=== PATIENT | male | born 1955 | race Caucasian/White ===

== ENCOUNTER → 2016-09-14 | Outpatient (CLI) | payer BC ==
[2016-09-14 09:33] LABS: ALANINE AMINOTRANSFERASE 26 U/L (0-55); ALBUMIN 4.1 G/DL (3.2-4.5); ANION GAP 6 MMOL/L (5-14); ASPARTATE AMINO TRANSFERASE 24 U/L (5-34); BILIRUBIN,DIRECT 0.3 MG/DL (0.0-0.3); BILIRUBIN,INDIRECT 0.6 MG/DL; BILIRUBIN,TOTAL 0.9 MG/DL (0.1-1.0); BLOOD UREA NITROGEN 10 MG/DL (7-18); BUN/CREATININE RATIO 9; CARBON DIOXIDE 26 MMOL/L (21-32); CHLORIDE 109 MMOL/L (98-107); CHOLESTEROL 137 MG/DL (< 200); CREATININE SERUM 1.16 MG/DL (0.60-1.30); DIRECT LDL 74 MG/DL (1-129); GFR ESTIMATED > 60; GLUCOSE 109 MG/DL (70-105); POTASSIUM 4.2 MMOL/L (3.6-5.0); SODIUM 141 MMOL/L (135-145); TOTAL PROTEIN 6.4 G/DL (6.4-8.2); TRIGLYCERIDES 81 MG/DL (<150); VLDL CHOLESTEROL 16 MG/DL (5-40)
== END ==
LOC: LAB 08:54
PROVIDERS: ATTEND Internal Medicine Cardiovascular Disease
DX: I25.10 Atherosclerotic heart disease of native coronary artery without angina pectoris (principal); I10 Essential (primary) hypertension; E78.5 Hyperlipidemia, unspecified; I51.7 Cardiomegaly
CPT/HCPCS: 36415; 80053; 80061; 80076; 82248

== ENCOUNTER → 2017-10-04 | Outpatient (CLI) | payer BC ==
--- NOTE | 2017-10-04 13:24 | Diagnostic Imaging Report ---
PROCEDURE: CT abdomen and pelvis without contrast. TECHNIQUE: Multiple contiguous axial images were obtained through the abdomen and pelvis without the use of intravenous contrast. INDICATION: Intermittent hematuria for one week. COMPARISON: No prior studies are available for comparison. FINDINGS: The lung bases are clear. No discrete liver mass is identified. Gallbladder appears to be contracted. The pancreas and spleen are unremarkable. No adrenal mass is detected. There is a 3 mm calcific density in mid left kidney, suggestive of a nonobstructing calculus. There appear to be renal sinus cysts bilaterally. No hydronephrosis is identified. The aorta is heavily calcified but nonaneurysmal. The small and large bowel loops are normal in caliber. The bladder is decompressed. No bladder calculi are seen. Prostate gland is unremarkable. There is no ascites. Bony structures are nonacute. IMPRESSION: 1. Tiny nonobstructing left renal calculus and bilateral renal sinus cysts. No other significant abnormality is seen. No acute feature is identified. Dictated by: Dictated on workstation # [id number]
== END ==
LOC: RAD 12:51
PROVIDERS: ATTEND Urology
DX: N28.1 Cyst of kidney, acquired (principal)
CPT/HCPCS: 74176

== ENCOUNTER → 2017-11-04 | Outpatient (CLI) | payer BC ==
[~2017-11-04] VITALS: Ht 177.8 cm; Wt 81.6 kg
[~2017-11-04] MED LIST: ASPI-586 PO; CARV6.252 PO; CATHETER FLUSH 10 ML SYR IV PRN; CLOP75TA28 PO; LISI-556 PO; NIAC10002 PO; OMG1KC PO; REGADENOSON 0.4 MG/5 ML SYR (LEXISCAN) IV ONE; ROSU20TA30 PO
[2017-11-04 09:10] VITALS: BP 119/75
[2017-11-04 09:14] VITALS: BP 84/54
[2017-11-04 09:15] VITALS: BP 112/70
[2017-11-04 09:54] LABS: ALANINE AMINOTRANSFERASE 26 U/L (0-55); ALBUMIN 4.2 GM/DL (3.2-4.5); ALKALINE PHOSPHATASE 62 U/L (40-136); BILIRUBIN,TOTAL 0.9 MG/DL (0.1-1.0); BUN/CREATININE RATIO 14; CALCIUM 9.3 MG/DL (8.5-10.1); CARBON DIOXIDE 26 MMOL/L (21-32); CHLORIDE 107 MMOL/L (98-107); CHOLESTEROL 127 MG/DL (< 200); CREATININE SERUM 0.95 MG/DL (0.60-1.30); GFR ESTIMATED > 60; GLUCOSE 107 MG/DL (70-105); HDL CHOLESTEROL 49 MG/DL (40-60); POTASSIUM 4.7 MMOL/L (3.6-5.0); SODIUM 139 MMOL/L (135-145); TOTAL PROTEIN 6.6 GM/DL (6.4-8.2); TRIGLYCERIDES 65 MG/DL (<150); VLDL CHOLESTEROL 13 MG/DL (5-40)
--- NOTE | 2017-11-04 16:06 | STRESS TEST ---
DATE OF SERVICE: 11/04/2017 LEXISCAN MYOVIEW STRESS TEST REPORT REFERRING PHYSICIAN: . Baseline heart rate is 59, baseline blood pressure 119/75. Baseline EKG is sinus rhythm with no ischemic changes. In summary, the patient received 10.61 mCi of technetium-99 Myoview and the resting images were obtained. Then, the patient received 0.4 mg of Lexiscan followed by 30.0 mCi of technetium-99 Myoview. Throughout the test, there were no EKG changes. The resting and stress images were reviewed and compared in the short axis, horizontal long axis, and vertical long axis views. Review of the images showed diaphragmatic attenuation with decreased uptake at the mid to apical inferior wall, inferolateral wall with mild reversibility. SSS is 8, SDS 4, TID value 0.98. On the gated images, the left ventricle appeared to be in normal size with normal contractility. Calculated ejection fraction 51%. CONCLUSION: 1. The patient tolerated Lexiscan well. 2. Diaphragmatic attenuation with questionable mild ischemia at the mid to apical inferior wall and inferolateral wall. 3. Normal left ventricular size with normal contractility. Calculated ejection fraction 51%. Job ID: [id number] DocumentID: [id number] Dictated Date: 11/04/2017 11:29:57 Development Engineer Date: 11/04/2017 16:05:50 Dictated By: ALEXANDRIA RUEDA MD
== END ==
LOC: CARD 07:28
PROVIDERS: ATTEND Internal Medicine Cardiovascular Disease
DX: I25.10 Atherosclerotic heart disease of native coronary artery without angina pectoris (principal); I51.9 Heart disease, unspecified; E78.5 Hyperlipidemia, unspecified
CPT/HCPCS: 36415; 78452; 80053; 80061; 93017

== ENCOUNTER 2017-11-13 06:54 | Day surgery (SDC) | payer BC ==
[2017-11-13] VITALS (12 sets, daily range): BP systolic 107–141; BP diastolic 68–83
[~2017-11-13] VITALS: Ht 177.8 cm; Wt 81.6 kg
[2017-11-13] MEDS ORDERED: NS IV 1000 ML 3,000 ML ONE (06:56)
[2017-11-13] MEDS ORDERED: LIDOCAINE 1% INJ 20 ML 20 ML VIAL ONE (06:56)
[2017-11-13] MEDS ORDERED: NS IV 1000 ML 1,000 ML IV SCH (07:00)
[2017-11-13] MEDS ORDERED: HEParin 1000 UNIT/ML (10ML VIAL) FOR BOLUS ONE (07:02)
[2017-11-13 07:20] LABS: MEAN PLATELET VOLUME 10.5 FL (7.4-10.4); RED BLOOD COUNT 4.43 10^6/uL (4.35-5.85); RED CELL DISTRIBUTION WIDTH 12.8 % (10.0-14.5)
[2017-11-13] MEDS ORDERED: LISI-556 PO (07:22)
[2017-11-13] MEDS ORDERED: ROSU20TA30 PO (07:22)
[2017-11-13] MEDS ORDERED: CARV6.252 PO (07:22)
[2017-11-13] MEDS ORDERED: OMG1KC PO (07:22)
[2017-11-13] MEDS ORDERED: ASPI-586 PO (07:22)
[2017-11-13] MEDS ORDERED: NIAC10002 PO (07:22)
[2017-11-13 07:29] LABS: PROTHROMBIN TIME PATIENT 13.4 SEC (12.2-14.7)
[2017-11-13 07:37] LABS: ALANINE AMINOTRANSFERASE 21 U/L (0-55); ALBUMIN 4.2 GM/DL (3.2-4.5); ALKALINE PHOSPHATASE 69 U/L (40-136); BILIRUBIN,TOTAL 0.6 MG/DL (0.1-1.0); BUN/CREATININE RATIO 13; CARBON DIOXIDE 24 MMOL/L (21-32); CHLORIDE 109 MMOL/L (98-107); CREATININE SERUM 1.08 MG/DL (0.60-1.30); GFR ESTIMATED > 60; GLUCOSE 111 MG/DL (70-105); POTASSIUM 4.2 MMOL/L (3.6-5.0); SODIUM 141 MMOL/L (135-145); TOTAL PROTEIN 6.2 GM/DL (6.4-8.2)
--- NOTE | 2017-11-13 07:38 | Diagnostic Imaging Report ---
EXAMINATION: Chest radiograph, portable AP view. DATE: November 13, 2017 at 0716 hours. INDICATION: 62-year-old male, preoperative exam. History of chest pain. COMPARISON: None. FINDINGS: Heart size and mediastinal contours are unremarkable. There is no identified pneumothorax. There is no large pleural effusion. There is no identified focal airspace consolidation. IMPRESSION: No identified acute cardiopulmonary abnormality. Dictated by: Dictated on workstation # [id number]
[2017-11-13] MEDS ORDERED: fentaNYL INJECTION 100 MCG/2 ML AMP ONE (08:55)
[2017-11-13] MEDS ORDERED: MIDAZOLAM 5 MG/5 ML (VERSED) VIAL ONE (08:55)
--- NOTE | 2017-11-13 08:55 | Cardiac Procedure Note-CS/ASA ---
Pre-Procedure Note Pre-Op Procedure Note H&P Reviewed The H&P was reviewed, patient examined and no changes noted. Date H&P Reviewed: November 13, 2017 Time H&P Reviewed: 08:55 Conscious Sedation Pre-Proced Time Reviewed: 08:55 ASA Class: 3 Airway Mallampati Classification: (lower elwha appropriate class) I. II. III, IV Lungs Heart ASA score ASA 1: a normal healthy patient ASA 2: a patient with a mild systemic disease (mid diabetes, controlled hypertension, obesity x ASA 3: a patient with a severe systemic disease that limits activity (angina , COPD, prior Myocardial infarction) ASA 4: a patient with an incapacitating disease that is a constant threat to life (CHF, renal failure) ASA 5: a moribund patient not expected to survive 24 hrs. (ruptured aneurysm) ASA 6: a declared brain patient whose organs are being harvested. For emergent operations, add the letter E after the classification Grade 3 Sedation Plan: Analgesia, Amnesia, Plan communicated to team members, Discussed options with patient/fam, Discussed risks with patient/fam Note The patient is an appropriate candidate to undergo the planned procedure, sedation, and anesthesia. The patient immediately re-assessed prior to indication. ALEXANDRIA RUEDA MD November 13, 2017 08:55
[2017-11-13] MEDS ORDERED: ENOXAPARIN 100 MG/1 ML (LOVENOX) SYR ONE (09:37)
[2017-11-13] MEDS ORDERED: NITRO DRIP 25000 MCG/D5W 250 ML IV ONE (09:42)
[2017-11-13] MEDS ORDERED: ASPIRIN 325 MG (5 GR) TABLET ONE (09:46)
[2017-11-13] MEDS ORDERED: CLOPIDOGREL 300 MG (PLAVIX) TABLET PO ONE (09:47)
--- NOTE | 2017-11-13 09:58 | Cardiac Cath Report ---
Cardiac Cath Report Physician (s)/Poiser (s) Physician ALEXANDRIA RUEDA MD Pre-Procedure Diagnosis Pre-Procedure Diagnosis: CAD Post-Procedure Note Procedure Start Date: November 13, 2017 Name of Procedure: Left heart catheter Aortic arch angiogram Balloon angioplasty to the right coronary artery Findings/Procedure Note PROCEDURE NOTE: After explaining the procedure to the patient, all pros and cons were explained , all questions were answered. The patient signed the consent and then he was placed on the cardiac catheterization laboratory. Groin was prepped SL fashion local anesthesia was used. Sheath placed in the right femoral artery. Lolis right and left catheter were used to access the coronary system. Pigtail was used to access the left ventricular cavity. Left ventriculogram was not done, pressure was measured Aortic arch angiogram was done, patient was reported to have severe stenosis at the proximal portion of the subclavian artery. Patient was noted to have severe in-stent restenosis in the right coronary artery, he was loaded with 60 mg of Lovenox IV, JR guide was used, BMW wire was advanced and parked distally, a plasty using Emerge 3.015 mm with 2 inflation with excellent result and no residual stenosis At the end of the procedure the sheath was removed. Closure device was used FINDINGS: Hemodynamics LV 121/12, end-diastolic pressure of 12 Aorta 121/60 mean of 85 ANATOMY: Left Main is free of obstructive disease Left Anterior Descending is small artery, tortuous, no obstructive disease Left Circumflex is moderate in size with no obstructive disease Right Coronory Artery is dominant artery with severe in-stent restenosis in the mid right coronary artery, successful balloon angioplasty using Emerge 3.015 mm extended 3.18 mm with excellent results, no residual stenosis, mild disease distally LV Gram was not done, pressure was measured Aorta evaluation done with aortic arch angiogram using 20 mL contrast which showed mild atherosclerotic disease in the aortic arch, origin of the right subclavian artery appeared to be slightly calcified with no significant obstructive disease noted, carotid arteries also slightly calcified with no significant obstructive disease noted CONCLUSION: 1. Severe in-stent restenosis in the midright coronary artery was successful balloon angioplasty using emerge 3.015 mm expanded to 3.18 mm with excellent results, no residual stenosis, mild disease at the distal right coronary artery 2. Tortuous LAD system with mild disease no significant obstructive disease, mild disease in the circumflex artery, nondominant artery 3. Normal left ventricular end-diastolic pressure 4. Mild calcification in the aortic arch and origin of the subclavian artery and carotid artery, nonobstructive disease although patient had CT scan reporting significant disease, it was not the arch angiogram DISCUSSION AND RECOMMENDATION: I will continue maximizing medical therapy, patient was loaded with aspirin and Plavix in the Network Liaison Anesthesia Type: Conscious Sedation Estimated blood loss (mL): 10 ml Contrast Amount: 79 ml Total Radiation Dose: 523 mGy Post-Procedure Diagnosis Post-operative diagnosis: Coronary artery disease Carotid stenosis Hypertension Hyperlipidemia ALEXANDRIA RUEDA MD November 13, 2017 09:58
[2017-11-13] MEDS ORDERED: PATIENT MAY USE OWN MEDS, ALL PO SCH (10:00)
[2017-11-13] MEDS: NS IV 1000 ML 1,000 ML IV SCH ×2 (11:54→21:01)
[2017-11-13] MEDS ORDERED: ROSUVASTATIN 20 MG (CRESTOR) TABLET PO SCH (21:00)
[2017-11-13] MEDS ORDERED: CARVEDILOL 6.25 MG (COREG) TAB PO SCH (21:00)
[2017-11-14] VITALS: BP 111/68
[2017-11-14 04:00] VITALS: BP 101/64
[2017-11-14 04:05] LABS: MEAN PLATELET VOLUME 10.8 FL (7.4-10.4); RED BLOOD COUNT 4.43 10^6/uL (4.35-5.85); RED CELL DISTRIBUTION WIDTH 12.9 % (10.0-14.5); WHITE BLOOD COUNT 7.6 10^3/uL (4.3-11.0)
[2017-11-14 04:24] LABS: BUN/CREATININE RATIO 14; CALCIUM 8.6 MG/DL (8.5-10.1); CARBON DIOXIDE 20 MMOL/L (21-32); CHLORIDE 112 MMOL/L (98-107); CREATININE SERUM 0.84 MG/DL (0.60-1.30); GFR ESTIMATED > 60; GLUCOSE 98 MG/DL (70-105); POTASSIUM 4.4 MMOL/L (3.6-5.0); SODIUM 142 MMOL/L (135-145)
[2017-11-14] MEDS: NS IV 1000 ML 1,000 ML IV SCH (06:43)
[2017-11-14] MEDS ORDERED: NIACIN ER (NIASPAN) 500 MG TAB PO SCH (08:00)
[2017-11-14] MEDS ORDERED: CLOP75TA28 PO (08:00)
--- NOTE | 2017-11-14 08:00 | Cardiology Progress Note ---
Subjective Date Seen by Provider: November 14, 2017 Time Seen by Provider: 07:58 Subjective/Events-last exam Patient is laying down in bed. Denied any chest pain or shortness of breath. Denied any palpitation, syncope or near syncopal episodes. Groin is healing well Review of Systems General: No Chills, No Night Sweats, No Fatigue, No Malaise, No Appetite, No Other HEENT: No Head Aches, No Visual Changes, No Eye Pain, No Ear Pain, No Dysphasia , No Sinus Congestion, No Post Nasal Drip, No Sore Throat, No Other Pulmonary: No Dyspnea, No Cough, No Pleuritic Chest Pain, No Other Cardiovascular: No: Chest Pain, Palpitations, Orthopnea, Paroxysmal Noc. Dyspnea, Edema, Lt Headedness, Other Objective-Cardiology Exam Last Set of Vital Signs Vital Signs 11/14/17 11/14/17 11/14/17 00:00 04:00 07:01 Temp 98.6 Pulse 73 Resp 18 B/P (MAP) 101/64 (76) Pulse Ox 96 O2 Delivery Room Air Capillary Refill : Less Than 3 Seconds General: Alert, Oriented X3, Cooperative HEENT: Atraumatic, PERRLA Neck: Supple, No JVD, No Thyromegaly Lungs: Clear to Auscultation, Normal Air Movement Heart: Regular Rate, Normal S1, Normal S2, No Murmurs Abdomen: Normal Bowel Sounds, Soft, No Tenderness, No Hepatosplenomegaly, No Masses Extremities: No Clubbing, No Cyanosis, No Edema, Normal Pulses, No Tenderness/ Swelling Skin: No Rashes, No Breakdown, No Significant Lesion Neuro: Normal Gait, Normal Speech, Strength at 5/5 X4 Ext, Normal Tone, Sensation Intact Psych/Mental Status: Mental Status NL, Mood NL Results Lab Laboratory Tests 11/14/17 03:48 A/P-Cardiology Admission Diagnosis Coronary artery disease Hypertension Hyperlipidemia Peripheral arterial disease Assessment/Plan Coronary artery disease status post balloon angioplasty for in-stent restenosis with excellent results Hypertension, good control continue current medication Hyperlipidemia, continue current medication Subclavian artery stenosis, aortic arch angiogram and evaluation of the subclavian artery did not show significant stenosis, followed by vascular surgeon. ALEXANDRIA RUEDA MD November 14, 2017 08:00
--- NOTE | 2017-11-14 08:02 | Discharge Inst-Post CATH ---
Discharge Inst-CATH Post Cardiac Cath D/C Inst Follow Up/Plan Appointment with Dr. Kaplan's office in 2-4 weeks CARDIAC CATH DISCHARGE INSTRUCTIONS *Hold Metformin for 48 hours post heart cath. ACTIVITY * Go Home directly and rest. * Limit activity of the leg (or wrist if it was used) for 7 days including aerobics, swimming, jogging, bicycling, etc. * Restrict stair-climbing for 7 days if possible, if not, climb up with your non -cath leg, then bring together on the same step. * Avoid lifting, pushing, pulling or excessive movement of the affected extremity for 7 days. * Customary sexual activity may be resumed after 2 days-use caution not to use a position that strains or causes pain to the affected extremity. * No driving for 24 hours. * NO SMOKING. * Avoid straining for bowel movements for 7 days. * Gentle walking on level ground is allowed. * Returning to work will depend on the type of procedure and the results. Your doctor will discuss this with you. CALL YOUR DOCTOR FOR ANY OF THE FOLLOWING: *If bleeding from the puncture site occurs- Apply gentle pressure to site with clean cloth and call your doctor or EMS. * If a knot or lump forms under the skin, increases in size, or causes pain. * If bruising appears to be worsening or moving further down your leg instead of disappearing. * Temperature above 101 F. CARE OF YOUR GROIN INCISION; * Bruising or purple discoloration of the skin near the puncture site is common. * You may shower only, no bathtub bathing for 5 days. Be careful to avoid slipping as your leg may feel stiff. * If a closure device was used on your femoral artery, please see the attached guide regarding care of the device and your leg. * REMOVE the dressing from your groin the next day after your procedure in the shower. CARE OF YOUR WRIST INCISION; * Bruising or purple discoloration of the skin near the puncture site is common. * You may shower. * DO NOT submerge wrist. * Remove dressing in 24 hours. ALEXANDRIA KAPLAN MD November 14, 2017 08:02
[2017-11-14 08:20] VITALS: BP 132/86
[2017-11-14] MEDS ORDERED: NON-FORMULARY MEDICATION 1 EA EA (Lisinopril 5 MG) PO SCH (09:00)
[2017-11-14] MEDS ORDERED: NIACIN 1000 MG PO SCH (09:00)
[2017-11-14] MEDS ORDERED: OMEGA 3 (FISH OIL) 1000 MG CAP PO SCH (09:00)
[2017-11-14] MEDS ORDERED: ASPIRIN E.C. 81 MG (ECOTRIN) TAB PO SCH (09:00)
[2017-11-14] MEDS ORDERED: CLOPIDOGREL 75 MG (PLAVIX) TABLET PO SCH (09:00)
[2017-11-14] MEDS ORDERED: lisINopril 5 MG (PRINIVIL) TABLET PO SCH (09:00)
== END 2017-11-14 08:55 | disposition home or self-care (01) ==
LOC: CATH 06:54 → ICU 10:10 → CATH 11-14 08:55
PROVIDERS: ATTEND Internal Medicine Cardiovascular Disease
DX: I25.10 Atherosclerotic heart disease of native coronary artery without angina pectoris (principal); I65.23 Occlusion and stenosis of bilateral carotid arteries; I10 Essential (primary) hypertension; E78.5 Hyperlipidemia, unspecified; Z87.891 Personal history of nicotine dependence; Z95.5 Presence of coronary angioplasty implant and graft; Z11.2 Encounter for screening for other bacterial diseases
CPT/HCPCS: 36221; 36415; 71045; 80048; 80053; 85027; 85610; 85730; 87081; 93005; 93458

== ENCOUNTER → 2018-09-03 | Outpatient (CLI) | payer MEDICARE, BC ==
[~2018-09-03] MED LIST changes: +IOHEXOL 350 MG/ML 100 ML (OMNIPAQUE 350) VIAL IV ONE; +NS 100 ML (IVPB) BAG IV ONE; +RECEIVED CONTRAST (Hold Metformin) IV SCH; -REGADENOSON 0.4 MG/5 ML SYR (LEXISCAN) IV ONE; -ROSU20TA30 PO; +ROSU20TA31 PO
[2018-09-03 09:19] LABS: ALANINE AMINOTRANSFERASE 29 U/L (0-55); ALKALINE PHOSPHATASE 73 U/L (40-136); BILIRUBIN,TOTAL 0.6 MG/DL (0.1-1.0); BUN/CREATININE RATIO 12; CALCIUM 9.3 MG/DL (8.5-10.1); CARBON DIOXIDE 26 MMOL/L (21-32); CHLORIDE 108 MMOL/L (98-107); CHOLESTEROL 138 MG/DL (< 200); GFR ESTIMATED > 60; GLUCOSE 123 MG/DL (70-105); HDL CHOLESTEROL 49 MG/DL (40-60); POTASSIUM 4.7 MMOL/L (3.6-5.0); SODIUM 140 MMOL/L (135-145); TOTAL PROTEIN 6.2 GM/DL (6.4-8.2); TRIGLYCERIDES 49 MG/DL (<150); VLDL CHOLESTEROL 10 MG/DL (5-40)
--- NOTE | 2018-09-03 11:47 | Diagnostic Imaging Report ---
EXAMINATION: CTA of the neck with contrast. TECHNIQUE: Contiguous axial sections were taken from the midportion of the skull through the lung apices following administration of intravenous contrast. Sagittal and coronal reconstructed images were obtained as well. MIP images were also performed. FINDINGS: The previous CTA neck exam of 05/29/2016 noted a 70% stenosis of the origin of the right subclavian artery. On this exam, the origin of the right subclavian artery is not as well visualized due to streak artifact related to contrast within the superior vena cava. The stenosis noted on the prior exam does not seem to have progress significantly, however. The prior exam also showed less than 50% stenoses of the origin of the internal carotid arteries bilaterally. In the interval since the prior exam, there is still no evidence for hemodynamically significant stenosis of the origin of either internal carotid artery. However, I would estimate the narrowing of the origin of the internal carotid artery on the right to be in the 50-60% range. No other hemodynamically significant stenosis is identified. As noted on the prior exam, the vertebral arteries are opacified and the left vertebral artery is dominant. The intracranial vasculature is unremarkable for an aneurysm. There is no defect within the vessels to suggest a thrombus nor is there any sign of a hemodynamically significant stenosis. The intracranial contents, where visualized, are unremarkable. The orbits are symmetrical and within normal limits. The sinuses are generally clear. There is no mass or adenopathy involving the neck. The parotid and submandibular glands are symmetrical and within normal limits. The thyroid gland is partially obscured by streak artifact but seems homogeneous. The lung apices are clear. As noted on the prior exam, there is degenerative disc and bony disease at C4-C5, C5-C6, and to a lesser degree at C3-C4 and C6-C7. The degenerative disc and bony disease has progressed somewhat since the prior exam. There does seem to be spinal stenosis and neuroforaminal narrowing at both C4-C5 and C5-C6. There is also narrowing of the neuroforamen on the left at C3-C4 and C6-C7, particularly at C6-C7. These findings are similar to the prior study. There is no acute bony abnormality noted. IMPRESSION: 1. The 70% stenosis of the origin of the subclavian artery on the right seen on the previous exam does not appear to have changed significantly since the prior study. 2. There is still no evidence for hemodynamically significant stenosis of the origin of either internal carotid artery but the stenosis of the origin of the internal carotid artery on the right is now estimated to be in the 50-60% range. 3. There is no hemodynamically significant stenosis of the intracranial vascularity and there is no sign of an aneurysm of the zuni of Vás[place]. 4. There is fairly severe degenerative disc and bony disease involving the cervical spine. The degenerative changes have not progressed significantly since the prior exam. Dictated by: Dictated on workstation # [id number]
== END ==
LOC: RAD 08:46
PROVIDERS: ATTEND Internal Medicine Cardiovascular Disease
DX: I65.21 Occlusion and stenosis of right carotid artery (principal); I77.1 Stricture of artery; M89.9 Disorder of bone, unspecified; M50.31 Other cervical disc degeneration, high cervical region; E78.2 Mixed hyperlipidemia; I11.9 Hypertensive heart disease without heart failure; I25.10 Atherosclerotic heart disease of native coronary artery without angina pectoris
CPT/HCPCS: 36415; 70498; 80053; 80061; 82565; 84520

== ENCOUNTER 2019-01-06 19:37 | Emergency (ER) | payer MEDICARE, BC ==
[~2019-01-06] VITALS: Ht 177.8 cm; Wt 81.6 kg
[~2019-01-06 19:37] MED LIST changes: -CATHETER FLUSH 10 ML SYR IV PRN; -IOHEXOL 350 MG/ML 100 ML (OMNIPAQUE 350) VIAL IV ONE; -NS 100 ML (IVPB) BAG IV ONE; -RECEIVED CONTRAST (Hold Metformin) IV SCH
[2019-01-06] MEDS ORDERED: ONDANSETRON 4 MG (ZOFRAN) ORAL DISSOLVE TAB PO STA (19:50)
--- OUTSIDE RECORDS SUMMARY | 2019-01-06 19:54 | XMS REPORT | Continuity of Care Document ---
Author Organization Unknown Address Unknown Allergies Active Description Code Type Severity Reaction Onset Reported/Identified Relationship to Patient Clinical Status Yes NKANo Known Allergies NKA Miscellaneous Allergy Unknown N/A 12/05/2005 Medications There is no data. Problems Date Dx Coded Attending Type Code Diagnosis Diagnosed By 05/29/2016 Ot 272.4 HYPERLIPIDEMIA NEC/NOS 05/29/2016 Ot 401.9 HYPERTENSION NOS 05/29/2016 Ot 414.00 CORON ATHEROSCLER NOS TYPE VESSEL, NATIV 05/29/2016 Ot V45.82 PERCUTANEOUS TRANSLUM CORON ANGIOPLASTY 05/29/2016 ALEXANDRIA RUEDA MD Ot E78.5 HYPERLIPIDEMIA, UNSPECIFIED 05/29/2016 ALEXANDRIA RUEDA MD Ot I11.0 HYPERTENSIVE HEART DISEASE WITH HEART FA 05/29/2016 ALEXANDRIA RUEDA MD Ot I25.10 ATHSCL HEART DISEASE OF [place] CORONARY 05/29/2016 ALEXANDRIA RUEDA MD Ot I51.7 CARDIOMEGALY 05/29/2016 ALEXANDRIA RUEDA MD Ot I65.23 OCCLUSION AND STENOSIS OF BILATERAL DAHL 05/30/2016 ALEXANDRIA RUEDA MD Ot E78.5 HYPERLIPIDEMIA, UNSPECIFIED 05/30/2016 ALEXANDRIA RUEDA MD Ot I11.0 HYPERTENSIVE HEART DISEASE WITH HEART FA 05/30/2016 ALEXANDRIA RUEDA MD Ot I25.10 ATHSCL HEART DISEASE OF [place] CORONARY 05/30/2016 ALEXANDRIA RUEDA MD Ot I51.7 CARDIOMEGALY 05/30/2016 ALEXANDRIA RUEDA MD Ot I65.23 OCCLUSION AND STENOSIS OF BILATERAL DAHL 06/08/2016 ALEXANDRIA RUEDA MD Ot E78.5 HYPERLIPIDEMIA, UNSPECIFIED 06/08/2016 ALEXANDRIA RUEDA MD Ot I11.0 HYPERTENSIVE HEART DISEASE WITH HEART FA 06/08/2016 ALEXANDRIA RUEDA MD Ot I25.10 ATHSCL HEART DISEASE OF [place] CORONARY 06/08/2016 MOHIT MD, BASHAR J Ot I51.7 CARDIOMEGALY 06/08/2016 MOHIT NARANJO, ALEXANDRIA Thomas Ot I65.23 OCCLUSION AND STENOSIS OF BILATERAL DAHL 06/12/2016 ALEXANDRIA RUEDA MD Ot E78.5 HYPERLIPIDEMIA, UNSPECIFIED 06/12/2016 ALEXANDRIA RUEDA MD J Ot I10 ESSENTIAL (PRIMARY) HYPERTENSION 06/12/2016 ALEXANDRIA RUEDA MD Ot I25.10 ATHSCL HEART DISEASE OF [place] CORONARY 06/12/2016 ALEXANDRIA RUEDA MD Ot I51.7 CARDIOMEGALY 06/12/2016 ALEXANDRIA RUEDA MD Ot E78.5 HYPERLIPIDEMIA, UNSPECIFIED 06/12/2016 ALEXANDRIA RUEDA MD J Ot I10 ESSENTIAL (PRIMARY) HYPERTENSION 06/12/2016 ALEXANDRIA RUEDA MD Ot I25.10 ATHSCL HEART DISEASE OF [place] CORONARY 06/12/2016 ALEXANDRIA RUEDA MD Ot I51.7 CARDIOMEGALY 06/14/2016 ALEXANDRIA RUEDA MD Ot E78.5 HYPERLIPIDEMIA, UNSPECIFIED 06/14/2016 ALEXANDRIA RUEDA MD Ot I10 ESSENTIAL (PRIMARY) HYPERTENSION 06/14/2016 ALEXANDRIA RUEDA MD Ot I25.10 ATHSCL HEART DISEASE OF [place] CORONARY 06/14/2016 ALEXANDRIA RUEDA MD Ot I51.7 CARDIOMEGALY 06/20/2016 ALEXANDRIA RUEDA MD Ot E78.5 HYPERLIPIDEMIA, UNSPECIFIED 06/20/2016 ALEXANDRIA RUEDA MD Ot I10 ESSENTIAL (PRIMARY) HYPERTENSION 06/20/2016 ALEXANDRIA RUEDA MD Ot I25.10 ATHSCL HEART DISEASE OF [place] CORONARY 06/20/2016 ALEXANDRIA RUEDA MD Ot I51.7 CARDIOMEGALY 09/17/2016 ALEXANDRIA RUEDA MD Ot E78.5 HYPERLIPIDEMIA, UNSPECIFIED 09/17/2016 ALEXANDRIA RUEDA MD Ot I10 ESSENTIAL (PRIMARY) HYPERTENSION 09/17/2016 ALEXANDRIA RUEDA MD Ot I25.10 ATHSCL HEART DISEASE OF [place] CORONARY 09/17/2016 ALEXANDRIA RUEDA MD Ot I51.7 CARDIOMEGALY 09/26/2016 ALEXANDRIA RUEDA MD Ot E78.5 HYPERLIPIDEMIA, UNSPECIFIED 09/26/2016 MOHIT MD, BASHAR J Ot I10 ESSENTIAL (PRIMARY) HYPERTENSION 09/26/2016 ALEXANDRIA RUEDA MD Ot I25.10 ATHSCL HEART DISEASE OF [place] CORONARY 09/26/2016 ALEXANDRIA RUEDA MD Ot I51.7 CARDIOMEGALY 10/04/2017 ALEXANDRIA RUEDA MD Ot E78.5 HYPERLIPIDEMIA, UNSPECIFIED 10/04/2017 ALEXANDRIA RUEDA MD Ot I10 ESSENTIAL (PRIMARY) HYPERTENSION 10/04/2017 ALEXANDRIA RUEDA MD Ot I25.10 ATHSCL HEART DISEASE OF [place] CORONARY 10/04/2017 ALEXANDRIA RUEDA MD Ot I51.7 CARDIOMEGALY 10/04/2017 ALEXANDRIA RUEDA MD Ot E78.5 HYPERLIPIDEMIA, UNSPECIFIED 10/04/2017 ALEXANDRIA RUEDA MD Ot I11.0 HYPERTENSIVE HEART DISEASE WITH HEART FA 10/04/2017 ALEXANDRIA RUEDA MD Ot I25.10 ATHSCL HEART DISEASE OF [place] CORONARY 10/04/2017 ALEXANDRIA RUEDA MD Ot I51.7 CARDIOMEGALY 10/04/2017 ALEXANDRIA RUEDA MD Ot I65.23 OCCLUSION AND STENOSIS OF BILATERAL DAHL 10/04/2017 ALEXANDRIA RUEDA MD Ot E78.5 HYPERLIPIDEMIA, UNSPECIFIED 10/04/2017 ALEXANDRIA RUEDA MD Ot I10 ESSENTIAL (PRIMARY) HYPERTENSION 10/04/2017 ALEXANDRIA RUEDA MD Ot I25.10 ATHSCL HEART DISEASE OF [place] CORONARY 10/04/2017 ALEXANDRIA RUEDA MD Ot I51.7 CARDIOMEGALY 10/07/2017 JAVIER BADILLO MD Ot N28.1 CYST OF KIDNEY, ACQUIRED 10/10/2017 JAVIER BADILLO MD A Ot N28.1 CYST OF KIDNEY, ACQUIRED 10/17/2017 JAVIER BADILLO MD A Ot N28.1 CYST OF KIDNEY, ACQUIRED 11/04/2017 ALEXANDRIA RUEDA MD Ot E78.5 HYPERLIPIDEMIA, UNSPECIFIED 11/04/2017 ALEXANDRIA RUEDA MD Ot I25.10 ATHSCL HEART DISEASE OF [place] CORONARY 11/04/2017 ALEXANDRIA RUEDA MD Ot I51.9 HEART DISEASE, UNSPECIFIED 11/04/2017 ALEXANDRIA RUEDA MD Ot E78.5 HYPERLIPIDEMIA, UNSPECIFIED 11/04/2017 ALEXANDRIA RUEDA MD Ot I25.10 ATHSCL HEART DISEASE OF [place] CORONARY 11/04/2017 ALEXANDRIA RUEDA MD Ot I51.9 HEART DISEASE, UNSPECIFIED 11/14/2017 ALEXANDRIA RUEDA MD Ot E78.5 HYPERLIPIDEMIA, UNSPECIFIED 11/14/2017 ALEXANDRIA RUEDA MD Ot I10 ESSENTIAL (PRIMARY) HYPERTENSION 11/14/2017 ALEXANDRIA RUEDA MD Ot I25.10 ATHSCL HEART DISEASE OF [place] CORONARY 11/14/2017 ALEXANDRIA RUEDA MD Ot I65.23 OCCLUSION AND STENOSIS OF BILATERAL DAHL 11/14/2017 ALEXANDRIA RUEDA MD Ot Z11.2 ENCOUNTER FOR SCREENING FOR OTHER BACTER 11/14/2017 ALEXANDRIA RUEDA MD Ot Z87.891 PERSONAL HISTORY OF NICOTINE DEPENDENCE 11/14/2017 ALEXANDRIA RUEDA MD Ot Z95.5 PRESENCE OF CORONARY ANGIOPLASTY IMPLANT 11/15/2017 ALEXANDRIA RUEDA MD Ot E78.5 HYPERLIPIDEMIA, UNSPECIFIED 11/15/2017 ALEXANDRIA RUEDA MD Ot I10 ESSENTIAL (PRIMARY) HYPERTENSION 11/15/2017 ALEXANDRIA RUEDA MD Ot I25.10 ATHSCL HEART DISEASE OF [place] CORONARY 11/15/2017 ALEXANDRIA RUEDA MD Ot I65.23 OCCLUSION AND STENOSIS OF BILATERAL DAHL 11/15/2017 ALEXANDRIA RUEDA MD Ot Z11.2 ENCOUNTER FOR SCREENING FOR OTHER BACTER 11/15/2017 ALEXANDRIA RUEDA MD Ot Z87.891 PERSONAL HISTORY OF NICOTINE DEPENDENCE 11/15/2017 ALEXANDRIA RUEDA MD Ot Z95.5 PRESENCE OF CORONARY ANGIOPLASTY IMPLANT 11/19/2017 ALEXANDRIA RUEDA MD Ot E78.5 HYPERLIPIDEMIA, UNSPECIFIED 11/19/2017 ALEXANDRIA RUEDA MD Ot I10 ESSENTIAL (PRIMARY) HYPERTENSION 11/19/2017 ALEXANDRIA RUEDA MD Ot I25.10 ATHSCL HEART DISEASE OF [place] CORONARY 11/19/2017 ALEXANDRIA RUEDA MD Ot I65.23 OCCLUSION AND STENOSIS OF BILATERAL DAHL 11/19/2017 ALEXANDRIA RUEDA MD Ot Z11.2 ENCOUNTER FOR SCREENING FOR OTHER BACTER 11/19/2017 ALEXANDRIA RUEDA MD Ot Z87.891 PERSONAL HISTORY OF NICOTINE DEPENDENCE 11/19/2017 ALEXANDRIA RUEDA MD Ot Z95.5 PRESENCE OF CORONARY ANGIOPLASTY IMPLANT 11/20/2017 ALEXANDRIA RUEDA MD Ot E78.5 HYPERLIPIDEMIA, UNSPECIFIED 11/20/2017 ALEXANDRIA RUEDA MD Ot I25.10 ATHSCL HEART DISEASE OF [place] CORONARY 11/20/2017 ALEXANDRIA RUEDA MD Ot I51.9 HEART DISEASE, UNSPECIFIED 08/29/2018 ALEXANDRIA RUEDA MD Ot E78.5 HYPERLIPIDEMIA, UNSPECIFIED 08/29/2018 ALEXANDRIA RUEDA MD Ot I10 ESSENTIAL (PRIMARY) HYPERTENSION 08/29/2018 ALEXANDRIA RUEDA MD Ot I25.10 ATHSCL HEART DISEASE OF [place] CORONARY 08/29/2018 ALEXANDRIA RUEDA MD Ot I51.7 CARDIOMEGALY 08/29/2018 ALEXANDRIA RUEDA MD Ot E78.5 HYPERLIPIDEMIA, UNSPECIFIED 08/29/2018 ALEXANDRIA RUEDA MD Ot I11.0 HYPERTENSIVE HEART DISEASE WITH HEART FA 08/29/2018 ALEXANDRIA RUEDA MD Ot I25.10 ATHSCL HEART DISEASE OF [place] CORONARY 08/29/2018 ALEXANDRIA RUEDA MD Ot I51.7 CARDIOMEGALY 08/29/2018 ALEXANDRIA RUEDA MD Ot I65.23 OCCLUSION AND STENOSIS OF BILATERAL DAHL 08/29/2018 ALEXANDRIA RUEDA MD Ot E78.5 HYPERLIPIDEMIA, UNSPECIFIED 08/29/2018 ALEXANDRIA RUEDA MD Ot I10 ESSENTIAL (PRIMARY) HYPERTENSION 08/29/2018 ALEXANDRIA RUEDA MD Ot I25.10 ATHSCL HEART DISEASE OF [place] CORONARY 08/29/2018 ALEXANDRIA RUEDA MD Ot I51.7 CARDIOMEGALY 08/29/2018 JAVIER BADILLO MD Ot N28.1 CYST OF KIDNEY, ACQUIRED 08/29/2018 ALEXANDRIA RUEDA MD Ot E78.5 HYPERLIPIDEMIA, UNSPECIFIED 08/29/2018 ALEXANDRIA RUEDA MD Ot I25.10 ATHSCL HEART DISEASE OF [place] CORONARY 08/29/2018 ALEXANDRIA RUEDA MD Ot I51.9 HEART DISEASE, UNSPECIFIED 09/03/2018 ALEXANDRIA RUEDA MD Ot E78.2 MIXED HYPERLIPIDEMIA 09/03/2018 ALEXANDRIA RUEDA MD Ot I11.9 HYPERTENSIVE HEART DISEASE WITHOUT HEART 09/03/2018 ALEXANDRIA RUEDA MD Ot I25.10 ATHSCL HEART DISEASE OF [place] CORONARY 09/03/2018 ALEXANDRIA RUEDA MD Ot I65.21 OCCLUSION AND STENOSIS OF RIGHT CAROTID 09/03/2018 ALEXANDRIA RUEDA MD Ot I77.1 STRICTURE OF ARTERY 09/03/2018 ALEXANDRIA RUEDA MD Ot M50.31 OTHER CERVICAL DISC DEGENERATION, HIGH C 09/03/2018 ALEXANDRIA RUEDA MD Ot M89.9 DISORDER OF BONE, UNSPECIFIED 09/29/2018 ALEXANDRIA RUEDA MD Ot E78.2 MIXED HYPERLIPIDEMIA 09/29/2018 ALEXANDRIA RUEDA MD Ot I11.9 HYPERTENSIVE HEART DISEASE WITHOUT HEART 09/29/2018 ALEXANDRIA RUEDA MD Ot I25.10 ATHSCL HEART DISEASE OF [place] CORONARY 09/29/2018 ALEXANDRIA RUEDA MD Ot I65.21 OCCLUSION AND STENOSIS OF RIGHT CAROTID 09/29/2018 ALEXANDRIA RUEDA MD Ot I77.1 STRICTURE OF ARTERY 09/29/2018 ALEXANDRIA RUEDA MD Ot M50.31 OTHER CERVICAL DISC DEGENERATION, HIGH C 09/29/2018 ALEXANDRIA RUEDA MD Ot M89.9 DISORDER OF BONE, UNSPECIFIED 11/05/2018 ALEXANDRIA RUEDA MD Ot E78.2 MIXED HYPERLIPIDEMIA 11/05/2018 ALEXANDRIA RUEDA MD Ot I11.9 HYPERTENSIVE HEART DISEASE WITHOUT HEART 11/05/2018 ALEXANDRIA RUEDA MD Ot I25.10 ATHSCL HEART DISEASE OF [place] CORONARY 11/05/2018 ALEXANDRIA RUEDA MD Ot I65.21 OCCLUSION AND STENOSIS OF RIGHT CAROTID 11/05/2018 ALEXANDRIA RUEDA MD Ot I77.1 STRICTURE OF ARTERY 11/05/2018 ALEXANDRIA RUEDA MD Ot M50.31 OTHER CERVICAL DISC DEGENERATION, HIGH C 11/05/2018 ALEXANDRIA RUEDA MD Ot M89.9 DISORDER OF BONE, UNSPECIFIED Procedures There is no data. Results Test Result Range Automated blood complete blood count (hemogram) panel - 11/13/17 07:12 Blood leukocytes automated count (number/volume) 6.0 10*3/uL 4.3-11.0 Blood erythrocytes automated count (number/volume) 4.43 10*6/uL 4.35-5.85 Venous blood hemoglobin measurement (mass/volume) 14.0 g/dL 13.3-17.7 Blood hematocrit (volume fraction) 42 % 40-54 Automated erythrocyte mean corpuscular volume 95 [foz_us] 80-99 Automated erythrocyte mean corpuscular hemoglobin (mass per erythrocyte) 32 pg 25-34 Automated erythrocyte mean corpuscular hemoglobin concentration measurement (mass/volume) 33 g/dL 32-36 Automated erythrocyte distribution width ratio 12.8 % 10.0- 14.5 Automated blood platelet count (count/volume) 183 10*3/uL 130-400 Automated blood platelet mean volume measurement 10.5 [foz_us] 7.4-10.4 PT panel in platelet poor plasma by coagulation assay - 11/13/17 07:12 Prothrombin time (PT) in platelet poor plasma by coagulation assay 13.4 s 12.2-14.7 INR in platelet poor plasma or blood by coagulation assay 1.0 0.8-1.4 Activated partial thromboplastin time (aPTT) in platelet poor plasma bycoagulation assay - 11/13/17 07:12 Activated partial thromboplastin time (aPTT) in platelet poor plasma bycoagulation assay 31 s 24-35 Comprehensive metabolic panel - 11/13/17 07:12 Serum or plasma sodium measurement (moles/volume) 141 mmol/L 135-145 Serum or plasma potassium measurement (moles/volume) 4.2 mmol/L 3.6-5.0 Serum or plasma chloride measurement (moles/volume) 109 mmol/L 98-107 Carbon dioxide 24 mmol/L 21-32 Serum or plasma anion gap determination (moles/volume) 8 mmol/L 5-14 Serum or plasma urea nitrogen measurement (mass/volume) 14 mg/dL 7-18 Serum or plasma creatinine measurement (mass/volume) 1.08 mg/dL 0.60-1.30 Serum or plasma urea nitrogen/creatinine mass ratio 13 NRG Serum or plasma creatinine measurement with calculation of estimated glomerular filtration rate > NRG Serum or plasma glucose measurement (mass/volume) 111 mg/dL 70-105 Serum or plasma calcium measurement (mass/volume) 9.0 mg/dL 8.5-10.1 Serum or plasma total bilirubin measurement (mass/volume) 0.6 mg/dL 0.1-1.0 Serum or plasma alkaline phosphatase measurement (enzymatic activity/volume) 69 U/L 40-136 Serum or plasma aspartate aminotransferase measurement (enzymatic activity/volume) 24 U/L 5-34 Serum or plasma alanine aminotransferase measurement (enzymatic activity/volume) 21 U/L 0-55 Serum or plasma protein measurement (mass/volume) 6.2 g/dL 6.4-8.2 Serum or plasma albumin measurement (mass/volume) 4.2 g/dL 3.2-4.5 Methicillin resistant Staphylococcus aureus (MRSA) screening culture - 11/13/17 07:12 Methicillin resistant Staphylococcus aureus (MRSA) screening culture NEG NRG Automated blood complete blood count (hemogram) panel - 11/14/17 03:48 Blood leukocytes automated count (number/volume) 7.6 10*3/uL 4.3-11.0 Blood erythrocytes automated count (number/volume) 4.43 10*6/uL 4.35-5.85 Venous blood hemoglobin measurement (mass/volume) 14.0 g/dL 13.3-17.7 Blood hematocrit (volume fraction) 42 % 40-54 Automated erythrocyte mean corpuscular volume 94 [foz_us] 80-99 Automated erythrocyte mean corpuscular hemoglobin (mass per erythrocyte) 32 pg 25-34 Automated erythrocyte mean corpuscular hemoglobin concentration measurement (mass/volume) 34 g/dL 32-36 Automated erythrocyte distribution width ratio 12.9 % 10.0- 14.5 Automated blood platelet count (count/volume) 178 10*3/uL 130-400 Automated blood platelet mean volume measurement 10.8 [foz_us] 7.4-10.4 Whole blood basic metabolic panel - 11/14/17 03:48 Serum or plasma sodium measurement (moles/volume) 142 mmol/L 135-145 Serum or plasma potassium measurement (moles/volume) 4.4 mmol/L 3.6-5.0 Serum or plasma chloride measurement (moles/volume) 112 mmol/L 98-107 Carbon dioxide 20 mmol/L 21-32 Serum or plasma anion gap determination (moles/volume) 10 mmol/L 5-14 Serum or plasma urea nitrogen measurement (mass/volume) 12 mg/dL 7-18 Serum or plasma creatinine measurement (mass/volume) 0.84 mg/dL 0.60-1.30 Serum or plasma urea nitrogen/creatinine mass ratio 14 NRG Serum or plasma creatinine measurement with calculation of estimated glomerular filtration rate > NRG Serum or plasma glucose measurement (mass/volume) 98 mg/dL 70-105 Serum or plasma calcium measurement (mass/volume) 8.6 mg/dL 8.5-10.1 Comprehensive metabolic panel - 09/03/18 08:52 Serum or plasma sodium measurement (moles/volume) 140 mmol/L 135-145 Serum or plasma potassium measurement (moles/volume) 4.7 mmol/L 3.6-5.0 Serum or plasma chloride measurement (moles/volume) 108 mmol/L 98-107 Carbon dioxide 26 mmol/L 21-32 Serum or plasma anion gap determination (moles/volume) 6 mmol/L 5-14 Serum or plasma urea nitrogen measurement (mass/volume) 12 mg/dL 7-18 Serum or plasma creatinine measurement (mass/volume) 1.00 mg/dL 0.60-1.30 Serum or plasma urea nitrogen/creatinine mass ratio 12 NRG Serum or plasma creatinine measurement with calculation of estimated glomerular filtration rate > NRG Serum or plasma glucose measurement (mass/volume) 123 mg/dL 70-105 Serum or plasma calcium measurement (mass/volume) 9.3 mg/dL 8.5-10.1 Serum or plasma total bilirubin measurement (mass/volume) 0.6 mg/dL 0.1-1.0 Serum or plasma alkaline phosphatase measurement (enzymatic activity/volume) 73 U/L 40-136 Serum or plasma aspartate aminotransferase measurement (enzymatic activity/volume) 27 U/L 5-34 Serum or plasma alanine aminotransferase measurement (enzymatic activity/volume) 29 U/L 0-55 Serum or plasma protein measurement (mass/volume) 6.2 g/dL 6.4-8.2 Serum or plasma albumin measurement (mass/volume) 4.0 g/dL 3.2-4.5 CALCIUM CORRECTED 9.3 mg/dL 8.5-10.1 Lipid 1996 panel - 09/03/18 08:52 Serum or plasma triglyceride measurement (mass/volume) 49 mg/dL <150 Serum or plasma cholesterol measurement (mass/volume) 138 mg/dL < 200 Serum or plasma cholesterol in HDL measurement (mass/volume) 49 mg/dL 40-60 Cholesterol in LDL [mass/volume] in serum or plasma by direct assay 77 mg/dL 1-129 Serum or plasma cholesterol in VLDL measurement (mass/volume) 10 mg/dL 5-40 Encounters ACCT No. Visit Date/Time Discharge Status Pt. Type Provider Facility Loc./Unit Complaint [id number] 09/03/2018 08:46:00 09/03/2018 23:59:59 CLS Outpatient ALEXANDRIA RUEDA MD [facility] RAD CAD,CAROTID ARTERY STENOSIS,HTN [id number] 11/13/2017 06:54:00 11/14/2017 08:55:00 DIS Outpatient ALEXANDRIA RUEDA MD [facility] CATH ABN STRESS,CAD,HTN [id number] 11/04/2017 07:28:00 11/04/2017 23:59:59 CLS Outpatient ALEXANDRIA RUEDA MD [facility] CARD I25.10 CAD [id number] 10/04/2017 12:51:00 10/04/2017 23:59:59 CLS Outpatient JAVIER BADILLO MD [facility] RAD HEMATURIA [id number] 10/03/2017 11:32:00 10/03/2017 23:59:59 CLS Preadmit ALEXANDRIA RUEDA MD [facility] CARD I25.10 CAD [id number] 09/14/2016 08:54:00 09/14/2016 23:59:59 CLS Outpatient ALEXANDRIA RUEDA MD [facility] LAB CAD,HTN,HLP [id number] 06/11/2016 08:22:00 06/11/2016 23:59:59 CLS Outpatient ALEXANDRIA RUEDA MD [facility] CARD CAD,ALFREDO,HLP [id number] 05/29/2016 08:27:00 05/29/2016 23:59:59 CLS Outpatient ALEXANDRIA RUEDA MD [facility] RAD CAROTID ARTERY STENOSIS,CAD,HTN,HLP [id number] 12/11/2010 08:09:00 Document Registration
--- NOTE | 2019-01-06 19:57 | ED Back Pain ---
General Chief Complaint: Abdominal/GI Problems Stated Complaint: L SIDED FLANK PAIN Nursing Triage Note: PT REPORTS HAVING A CT SCAN A YEAR AGO AND BEING TOLD HE HAD A KIDNEY STONE. PT REPORTS FEW PROBLEMS SINCE DIAGNOSIS. TODAY PAIN IS VERY SEVERE. PT ALSO REPORTS NAUSEA. Nursing Sepsis Screen: No Definite Risk Source of Information: Patient, Spouse Exam Limitations: No Limitations History of Present Illness Date Seen by Provider: Jan 06, 2019 Time Seen by Provider: 19:41 Initial Comments Patient presents to ER by private conveyance with his and chief complaint that about 4:00 this afternoon he started to experience some pain in his left flank and back. He said the pain was dull and achy at first but is progressively mounted. It's consistent with his history of kidney stones. He sees Dr. Badillo, urology for his history of kidney stones, hematuria. Is not having any dysuria or hematuria presently. No fevers or chills but he does have nausea and vomited twice already. He was out of town at his granddaughter's baseball game and did not have anything for the pain or nausea. He's not had anything to eat since noon. No history of surgeries on his back. Pain is worse with jolting bumpy rides in the car. He doesn't history of coronary artery disease with stents on aspirin daily. Allergies and Home Medications Allergies Coded Allergies: No Known Allergies (Verified Allergy, Unknown, 12/05/05) Home Medications Aspirin 81 Mg Tablet.dr, 81 MG PO DAILY, (Reported) Carvedilol 6.25 Mg Tablet, 6.25 MG PO BID, (Reported) Cephalexin 500 Mg Capsule, 500 MG PO BID Prescribed by: JORDY SALEH on 01/06/191958 Clopidogrel Bisulfate 75 Mg Tablet, 75 MG PO DAILY Prescribed by: ALEXANDRIA RUEDA on 11/14/17 0800 Hydrocodone Bit/Acetaminophen 1 Tab Tab, 1-2 EACH PO Q6H PRN for PAIN-MODERATE Prescribed by: JORDY SALEH on 01/06/191958 Lisinopril 5 Mg Tablet, 5 MG PO DAILY, (Reported) Niacin 1,000 Mg Tablet.er, 1,000 MG PO DAILY, (Reported) Harlan 3 Polyunsat Fatty Acids 1,000 Mg Cap, 1,000 MG PO DAILY, (Reported) Ondansetron 4 Mg Tab.rapdis, 4 MG PO Q6H PRN for NAUSEA/VOMITING Prescribed by: JORDY SALEH on 01/06/191958 Rosuvastatin Calcium 20 Mg Tablet, 20 MG PO HS, (Reported) Tamsulosin HCl 0.4 Mg Cap, 0.4 MG PO HS Prescribed by: JORDY SALEH on 01/06/191958 Patient Home Medication List Home Medication List Reviewed: Yes Review of Systems Constitutional: No chills, No fever EENTM: No ear discharge, No hearing loss, No ear pain Respiratory: No cough, No dyspnea on exertion Cardiovascular: No chest pain, No edema Gastrointestinal: No constipation, No diarrhea Genitourinary: No discharge, No dysuria Musculoskeletal: see HPI; No back pain, No joint pain Past Yyicxhu-Lsawxf-Ckekro Hx Patient Social History Alcohol Use: Denies Use Recreational Drug Use: No Smoking Status: Former Smoker Type Used: Cigarettes Former Smoker, Quit: November 13, 2008 Recent Foreign Travel: No Contact w/Someone Who Travel: No Recent Infectious Disease Expo: No Recent Hopitalizations: No Physical Abuse: No Sexual Abuse: No Seasonal Allergies Seasonal Allergies: No Past Medical History Surgeries: No Coronary Stent Respiratory: No Cardiac: Yes Hypertension Neurological: No Genitourinary: No Gastrointestinal: No Musculoskeletal: No Endocrine: No HEENT: No Cancer: Yes Bladder Psychosocial: No Integumentary: No Blood Disorders: No Physical Exam Vital Signs Vital Signs - First Documented 01/06/19 19:41 Temp 98.2 Pulse 87 Resp 16 B/P (MAP) 168/90 (116) Pulse Ox 98 Capillary Refill : Less Than 3 Seconds Height, Weight, BMI Height: 5'10.00" Weight: 180lbs. 0.0oz. 81.653493kt; 25.8 BMI Method:Stated General Appearance: WD/WN, Mild Distress HEENT: PERRL/EOMI, Pharynx Normal, Moist Mucous Membranes Cardiovascular: Regular Rate, Rhythm, No Edema Respiratory: No Accessory Muscle Use, No Respiratory Distress Gastrointestinal: Normal Bowel Sounds, No Organomegaly, Non Tender, Soft Back: CVA Tenderness (L); No CVA Tenderness (R) Extremity: Normal Capillary Refill, Normal Inspection Neurologic/Psychiatric: Alert, Oriented x3 Progress/Results/Core Measures Results/Orders Lab Results Laboratory Tests Test 01/06/19 19:59 Range/Units Urine Color YELLOW Urine Clarity CLEAR Urine pH 6 5-9 Urine Specific [place] 1.020 1.016-1.022 Urine Protein 1+ H NEGATIVE Urine Glucose (UA) NEGATIVE NEGATIVE Urine Ketones NEGATIVE NEGATIVE Urine Nitrite NEGATIVE NEGATIVE Urine Bilirubin NEGATIVE NEGATIVE Urine Urobilinogen NORMAL NORMAL MG/DL Urine Leukocyte Esterase 1+ H NEGATIVE Urine RBC (Auto) 4+ H NEGATIVE Urine RBC 50-100 H /HPF Urine WBC 0-2 /HPF Urine Crystals NONE /LPF Urine Bacteria FEW H /HPF Urine Casts NONE /LPF Urine Mucus NEGATIVE /LPF Urine Culture Indicated NO My Orders Orders - JORDY SALEH Ua Culture If Indicated (01/06/19 19:46) Fentanyl Injection (Sublimaze Injection (01/06/19 20:00) Ondansetron Oral Dissolve Tab (Zofran (01/06/19 19:50) Abdomen/Kub 1view (01/06/19 19:50) Ct Abd/Pelvis Wo(Kidney Stone) (01/06/19 19:50) Cephalexin Capsule (Keflex Capsule) (01/06/19 20:30) Medications Given in ED Current Medications Medications Dose Ordered Sig/Fam Route Start Time Stop Time Status Last Admin Dose Admin Fentanyl Citrate 75 mcg ONCE ONCE IM 01/06/19 20:00 01/06/19 20:01 DC 01/06/19 20:01 75 MCG Vital Signs/I&O 01/06/19 19:41 Temp 98.2 Pulse 87 Resp 16 B/P (MAP) 168/90 (116) Pulse Ox 98 Blood Pressure Mean: 116 Progress Progress Note : Time: 19:53 Progress Note We'll avoid Toradol given his history of cardiac coronary disease and give him IM fentanyl, ODT Zofran and obtain a KUB [address] without contrast looking for kidney stones. Urinalysis with culture if necessary. We'll start antibiotics and other medications tonight. He has declined an IV at this time. Diagnostic Imaging Diagonstic Imaging: Xray Plain Films/CT/US/NM/MRI: abdomen Comments Nonspecific bowel gas pattern. Reviewed: Reviewed by Me (1 view) Diagonstic Imaging: CT (noncontrast kidney stone study) Plain Films/CT/US/NM/MRI: abdomen, pelvis Comments NAME: [facility] REC#: [id number] PT STATUS: REG ER : 1955 PHYSICIAN: JORDY SALEH MD ADMIT DATE: 01/06/19/ER Draft Date of Exam:01/06/19 CT ABD/PELVIS WO(KIDNEY STONE) PROCEDURE: CT urinary tract, rule out kidney stone. TECHNIQUE: Multiple contiguous axial images were obtained through the abdomen and pelvis without the use of intravenous contrast. Auto Exposure Controls were utilized during the CT exam to meet ALARA standards for radiation dose reduction. INDICATION: Left-sided flank pain radiating to the groin. Patient does have history of kidney stones. Correlation is made with prior CT from 10/04/2017. The lung bases are clear. The liver and gallbladder are unremarkable. There is no biliary ductal dilatation. Pancreas and spleen are unremarkable. There is no adrenal mass. Both kidneys do contain parapelvic cysts. In addition, there has been some enlargement of left kidney with perinephric inflammatory stranding. There is also moderate hydronephrosis. This appears to be caused by a 3 mm stone in the proximal left ureter just beyond the UPJ. There is some periureteral inflammatory stranding present as well. The remainder of the left ureter is unremarkable. No bladder calculi are seen. Right ureter is unremarkable. Aorta is calcified but nonaneurysmal. The bowel loops are normal caliber. There is mild diverticulosis of the sigmoid but no acute diverticulitis. There is no ascites. Prostate is unremarkable. IMPRESSION: 1. 3 mm proximal left ureteric calculus producing moderate hydroureteronephrosis as well as perinephric and vijaya-ureteral inflammatory stranding. Dictated on workstation # [id number] Dict: 01/06/192017 Trans: 01/06/192023 [facility] [id number] Interpreted by: FLORENCE LEONE MD Electronically signed by: Reviewed: Reviewed by Me Departure Impression Primary Impression: Ureteral calculus, left Disposition: 01 HOME, SELF-CARE Condition: Stable Departure-Patient Inst. Decision time for Depature: 20:26 Referrals: MARIANNA BAUTISTA DO (PCP/Family) Primary Care Physician JAVIER BADILLO MD Patient Instructions: Kidney Stones (DC) Add. Discharge Instructions: Drink plenty of fluids. Caffeine is okay. Take the Keflex one capsule twice a day for the next week to treat for infection. Take the hydrocodone one to 2 tablets every 6 hours as needed for pain control. Take the Zofran 1 tablet every 6 hours as needed for nausea or vomiting. Follow-up with your urologist as necessary. Take the Flomax 1 tablet at night until you pass the stone. Strain your urine to see if you catch the stone. Sometimes the stone will breakup into a fine sand and you will never see it pass. Usually within 2-3 days after passing a stone your symptoms should randell. All discharge instructions reviewed with patient and/or family. Voiced understanding. Scripts Ondansetron (Ondansetron Odt) 4 Mg Tab.rapdis 4 MG PO Q6H PRN for NAUSEA/VOMITING, #12 TAB 0 Refills Prov: JORDY SALEH 01/06/19 Hydrocodone Bit/Acetaminophen (Hydrocodone/Acetaminophen 5/325mg Tablet) 1 Tab Tab 1-2 EACH PO Q6H PRN for PAIN-MODERATE MDD 10, #20 TAB 0 Refills Prov: JORDY SALEH 01/06/19 Tamsulosin HCl (Flomax) 0.4 Mg Cap 0.4 MG PO HS for 7 Days, #7 CAP 0 Refills Prov: JORDY SALEH 01/06/19 Cephalexin (Keflex) 500 Mg Capsule 500 MG PO BID for 7 Days, #14 CAP 0 Refills Prov: JORDY SALEH 01/06/19 JORDY SALEH Jan 06, 2019 19:57
[2019-01-06] MEDS ORDERED: CEPH-507 PO (19:59)
[2019-01-06] MEDS ORDERED: ACHD5005 PO (19:59)
[2019-01-06] MEDS ORDERED: ONDA4TAB11 PO (19:59)
[2019-01-06] MEDS ORDERED: TAMS0.4C98 PO (19:59)
[2019-01-06] MEDS ORDERED: fentaNYL INJECTION 100 MCG/2 ML AMP IM ONE (20:00)
[2019-01-06 20:06] LABS: BILIRUBIN,URINE NEGATIVE (NEGATIVE); CLARITY,URINE CLEAR; COLOR,URINE YELLOW; GLUCOSE, URINE (UA) NEGATIVE (NEGATIVE); KETONES,URINE NEGATIVE (NEGATIVE); LEUKOCYTE ESTERASE ,URINE 1+ (NEGATIVE); NITRITE,URINE NEGATIVE (NEGATIVE); PH,URINE 6 (5-9); PROTEIN,URINE 1+ (NEGATIVE); UROBILINOGEN,URINE NORMAL (NORMAL)
[2019-01-06 20:14] LABS: RBC,URINE 50-100 /HPF
[2019-01-06 20:15] LABS: BACTERIA,URINE FEW /HPF; WBC,URINE 0-2 /HPF
--- NOTE | 2019-01-06 20:24 | Diagnostic Imaging Report ---
PROCEDURE: CT urinary tract, rule out kidney stone. TECHNIQUE: Multiple contiguous axial images were obtained through the abdomen and pelvis without the use of intravenous contrast. Auto Exposure Controls were utilized during the CT exam to meet ALARA standards for radiation dose reduction. INDICATION: Left-sided flank pain radiating to the groin. Patient does have history of kidney stones. Correlation is made with prior CT from 10/04/2017. The lung bases are clear. The liver and gallbladder are unremarkable. There is no biliary ductal dilatation. Pancreas and spleen are unremarkable. There is no adrenal mass. Both kidneys do contain parapelvic cysts. In addition, there has been some enlargement of left kidney with perinephric inflammatory stranding. There is also moderate hydronephrosis. This appears to be caused by a 3 mm stone in the proximal left ureter just beyond the UPJ. There is some periureteral inflammatory stranding present as well. The remainder of the left ureter is unremarkable. No bladder calculi are seen. Right ureter is unremarkable. Aorta is calcified but nonaneurysmal. The bowel loops are normal caliber. There is mild diverticulosis of the sigmoid but no acute diverticulitis. There is no ascites. Prostate is unremarkable. IMPRESSION: 1. 3 mm proximal left ureteric calculus producing moderate hydroureteronephrosis as well as perinephric and vijaya-ureteral inflammatory stranding. Dictated by: Dictated on workstation # [id number]
[2019-01-06] MEDS ORDERED: RX-ONDANSETRON 4 MG ODT (ZOFRAN) PPK #4 PO STA (20:26)
[2019-01-06] MEDS ORDERED: RX-HYDROCODONE/APAP 5/325 MG #4 TAB PK PO PRN (20:30)
[2019-01-06] MEDS ORDERED: CEPHALEXIN 250 MG (KEFLEX) CAP PO ONE (20:30)
[2019-01-06 20:38] VITALS: BP 168/90
--- NOTE | 2019-01-06 20:41 | Diagnostic Imaging Report ---
INDICATION: Left-sided flank pain radiating to the groin. Time of exam: 8:15 PM Bowel gas pattern is unremarkable. No free air is seen. A vague calcific density inferior to the left L2 transverse process is seen which may represent ureteric calculus noted on recent CT. No other abnormalities are seen. IMPRESSION: Probable left proximal ureteric calculus. The study is otherwise unremarkable. Dictated by: Dictated on workstation # [id number]
== END 2019-01-06 20:38 | disposition home or self-care (01) ==
LOC: EDUNIT# 19:37 → ER 19:38
DX: N13.2 Hydronephrosis with renal and ureteral calculous obstruction (principal); I10 Essential (primary) hypertension; I25.10 Atherosclerotic heart disease of native coronary artery without angina pectoris; Z85.51 Personal history of malignant neoplasm of bladder; Z79.82 Long term (current) use of aspirin; Z87.891 Personal history of nicotine dependence; Z95.5 Presence of coronary angioplasty implant and graft
CPT/HCPCS: 74018; 74176; 81000

== ENCOUNTER → 2019-09-17 | Outpatient (CLI) | payer MEDICARE, BC ==
[~2019-09-17] MED LIST changes: +ACHD5005 PO; +CEPH-507 PO; +ONDA4TAB11 PO; -ROSU20TA31 PO; +ROSU20TA32 PO; +TMSL.4C PO
[2019-09-17 10:09] LABS: ALANINE AMINOTRANSFERASE 21 U/L (0-55); ALBUMIN 4.1 GM/DL (3.2-4.5); ALKALINE PHOSPHATASE 67 U/L (40-136); BILIRUBIN,TOTAL 0.7 MG/DL (0.1-1.0); BUN/CREATININE RATIO 9; CALCIUM 8.9 MG/DL (8.5-10.1); CARBON DIOXIDE 28 MMOL/L (21-32); CHLORIDE 108 MMOL/L (98-107); CHOLESTEROL 133 MG/DL (< 200); CREATININE SERUM 1.08 MG/DL (0.60-1.30); GFR ESTIMATED > 60; GLUCOSE 118 MG/DL (70-105); HDL CHOLESTEROL 48 MG/DL (40-60); POTASSIUM 4.7 MMOL/L (3.6-5.0); SODIUM 141 MMOL/L (135-145); TOTAL PROTEIN 6.3 GM/DL (6.4-8.2); TRIGLYCERIDES 48 MG/DL (<150); VLDL CHOLESTEROL 10 MG/DL (5-40)
== END ==
LOC: LAB 09:19
PROVIDERS: ATTEND Physician Assistant
DX: I25.10 Atherosclerotic heart disease of native coronary artery without angina pectoris (principal); I10 Essential (primary) hypertension; E78.2 Mixed hyperlipidemia
CPT/HCPCS: 36415; 80053; 80061

== ENCOUNTER → 2021-06-14 | Outpatient (CLI) | payer MEDICARE, BC ==
[~2021-06-14] VITALS: Ht 177 cm; Wt 81.0 kg
[~2021-06-14] MED LIST changes: +HOLD METFORMIN - RECEIVED CONTRAST 20 ML VIAL IV SCH; +IOHEXOL 350 MG/ML 100 ML (OMNIPAQUE 350) VIAL IV ONE; -LISI-556 PO; +LISI5TAB20 PO; +NS 100 ML (IVPB) BAG IV ONE
[2021-06-14 09:20] LABS: CREATININE SERUM 1.03 MG/DL (0.60-1.30)
[2021-06-14] MEDS: CATHETER FLUSH 10 ML SYR IV PRN ×2 (09:56→11:06)
--- NOTE | 2021-06-14 12:36 | Diagnostic Imaging Report ---
CT ANGIO NECK W INDICATION: Subclavian stenosis. Essential hypertension. COMPARISON: CTA neck of 09/03/2018 TECHNIQUE: CT images of the neck was performed with IV contrast. 3-D MIP reformats are created and submitted. Automatic exposure controls were utilized to keep dose as low as reasonably achievable. FINDINGS: There remains approximately 50-75% stenosis at the origin of the right subclavian artery due to noncalcified atherosclerotic plaquing. The remainder of the great vessels of the aortic arch are widely patent. The bilateral common carotid arteries are normal. There is atherosclerotic plaquing at the origins of the bilateral proximal internal carotid arteries causing less than 20% stenosis per NASCET criteria. This appearance is unchanged since prior examination. The cervical divisions and internal carotid arteries are normal. Bilateral vertebral arteries remain patent with a dominant left vertebral artery. No high-grade stenosis within the vertebral arteries. Multilevel advanced degenerative disc disease in the cervical spine is similar and greatest at C5-C6 and C6-C7. No cervical lymphadenopathy has developed. No concerning abnormality in the visualized intracranial portions of this exam. IMPRESSION: 1. No change in the 50-75% stenosis of the right subclavian artery at its origin due to noncalcified atherosclerotic plaquing. 2. There remains less than 20% stenosis of the bilateral proximal internal carotid arteries due to atherosclerotic plaquing. 3. Patent vertebral basilar system. Dictated by: Dictated on workstation # [id number]
[2021-06-14 13:00] VITALS: BP 150/77
--- NOTE | 2021-06-14 16:05 | Cardiology Stress Test Report ---
Stress Test Report Date of Procedure/Referring: Date of Procedure: Jun 14, 2021 PCP Alexandria Kaplan MD Admitting Physician Andriy Jensen DO Indications: HTN Baseline Heart Rate: 64 Baseline Blood Pressure: Blood Pressure Systolic: 150 Blood Pressure Diastolic: 77 Vital Signs Date Time Temp Pulse Resp B/P (MAP) Pulse Ox O2 Delivery O2 Flow Rate FiO2 06/14/21 13:00 77 16 150/77 (101) 98 Room Air Baseline Vital Signs Vital Signs Date Time Temp Pulse Resp B/P (MAP) Pulse Ox O2 Delivery O2 Flow Rate FiO2 06/14/21 13:00 77 16 150/77 (101) 98 Room Air Baseline EKG: Baseline EKG: NSR Summary: After explaining the procedure and details to the patient, he signed the consent and was brought to the stress nuclear laboratory. Patient exercised on standard Sony protocol, EKG, heart rate and blood pressure were monitored continuously, resting and stress doses of radio tracer were injected, imaging was acquired and reviewed in the short axis, horizontal long axis and vertical long axis views Patient was able to exercise for a total of 9 minutes on Sony protocol, METs 10.5 Maximum heart rate 135 Maximum blood pressure 197/81 Stress EKG, Minimal nondiagnostic changes Recovery EKG, Return to baseline TID: 1.03 SSS: 7 SDS: 5 EF: 56 Conclusion: 1. Good exercise tolerance for a total of 9 minutes on standard Sony protocol, 10.5 METS achieving 88% of maximal expected heart rate 2. Appropriate heart rate response to exercise with hypertensive response to exercise, peak blood pressure 197/81 return to baseline during recovery 3. Minimal nondiagnostic EKG changes with exercise return to baseline during recovery 4. Diaphragmatic attenuation with mild decrease uptake involving the inferior wall and inferolateral wall with mild reversibility, most probably secondary to diaphragmatic attenuation 5. Normal left ventricular size, EF 56%. ALEXANDRIA KAPLAN MD Jun 14, 2021 16:05
== END ==
LOC: CARD 09:45
PROVIDERS: ATTEND Internal Medicine Cardiovascular Disease
DX: I70.8 Atherosclerosis of other arteries (principal); I10 Essential (primary) hypertension; I65.23 Occlusion and stenosis of bilateral carotid arteries
CPT/HCPCS: 70498; 78452; 82565; 84520; 93017; 93306; A9502; 36415

== ENCOUNTER 2022-07-31 10:01 | Outpatient (RCR) | payer MEDICARE, BC ==
[~2022-07-31 10:01] MED LIST changes: -HOLD METFORMIN - RECEIVED CONTRAST 20 ML VIAL IV SCH; -IOHEXOL 350 MG/ML 100 ML (OMNIPAQUE 350) VIAL IV ONE; -NS 100 ML (IVPB) BAG IV ONE
== END 2022-08-07 | disposition home or self-care (01) ==
LOC: ONC 10:01
PROVIDERS: ATTEND Internal Medicine Hematology & Oncology
DX: Z08 Encounter for follow-up examination after completed treatment for malignant neoplasm (principal); Z85.51 Personal history of malignant neoplasm of bladder; Z12.5 Encounter for screening for malignant neoplasm of prostate
CPT/HCPCS: 84153; 84154; G0463; 99204

== ENCOUNTER → 2022-12-19 | Outpatient (CLI) | payer MEDICARE, BC ==
[~2022-12-19] MED LIST changes: +HOLD METFORMIN - RECEIVED CONTRAST 20 ML VIAL IV SCH; +IOHEXOL 350 MG/ML 100 ML (OMNIPAQUE 350) VIAL IV ONE; +NS 100 ML (IVPB) BAG IV ONE
[2022-12-19 11:22] LABS: CREATININE SERUM 1.04 MG/DL (0.60-1.30)
--- NOTE | 2022-12-19 12:53 | Diagnostic Imaging Report ---
EXAMINATION: CT angiography of the chest. TECHNIQUE: Contrast enhanced thin section helical images were obtained through the chest with intravenous contrast timed for the optimal opacification of the arterial structures per CTA protocol. Post-processing, reconstructions and interpretation of angiographic images of the vessels was performed. 3D MIP reconstructions were performed and reviewed. All CT scans use one or more of the following dose optimizing techniques: automated exposure control, MA and/or KvP adjustment based on a patient size and exam type, or iterative reconstruction. HISTORY: Subclavian artery stenosis. COMPARISON: None available. FINDINGS: There is 80% stenosis of the origin of the right subclavian artery which has worsened from prior exam when it was closer to 50%. There is no edema or pneumonia. No pleural effusion. No pneumothorax. No suspicious nodules. There is mild bibasilar atelectasis. There is no axillary or supraclavicular lymphadenopathy. There is no mediastinal lymphadenopathy. Heart size is normal. There are mild coronary artery calcifications. No pericardial effusion. Aorta is normal in caliber. Limited views of the upper abdomen are unremarkable. There are no suspicious osseus lesions. IMPRESSION: 1. Approximately 80% stenosis of the subclavian artery origin on the right, previously closer to 50%. Dictated by: Dictated on workstation # [id number]
== END ==
LOC: RAD 12:15
PROVIDERS: ATTEND Internal Medicine Cardiovascular Disease
DX: I70.8 Atherosclerosis of other arteries (principal)
CPT/HCPCS: 36415; 71275; 82565; 84520

== ENCOUNTER → 2023-01-16 | Outpatient (CLI) | payer MEDICARE, BC ==
[~2023-01-16] MED LIST changes: -HOLD METFORMIN - RECEIVED CONTRAST 20 ML VIAL IV SCH; -IOHEXOL 350 MG/ML 100 ML (OMNIPAQUE 350) VIAL IV ONE; -NS 100 ML (IVPB) BAG IV ONE
--- NOTE | 2023-01-16 12:59 | Diagnostic Imaging Report ---
PROCEDURE: CT urinary tract, rule out kidney stone. TECHNIQUE: Multiple contiguous axial images were obtained through the abdomen and pelvis without the use of intravenous contrast. Auto Exposure Controls were utilized during the CT exam to meet ALARA standards for radiation dose reduction. INDICATION: Kidney stones. Comparison is made with prior CT from 01/06/2019. FINDINGS: The lung bases are clear. Liver and gallbladder are unremarkable. There is no biliary ductal dilatation. Pancreas and spleen are unremarkable. No adrenal mass is identified. No renal or ureteral calculi are seen. There appear to be renal sinus cysts bilaterally. There is no hydronephrosis. Aorta is calcified but nonaneurysmal. Small and large bowel loops are normal caliber. Appendix is unremarkable. Occasional diverticula are noted within the descending and sigmoid colon but no evidence of acute diverticulitis. There is no free fluid or fluid collection identified. Bladder is decompressed. The prostate is unremarkable. Bony structures are nonacute. IMPRESSION: 1. No evidence of urinary tract calculi or obstruction. No acute feature in the abdomen or pelvis is detected. 2. Uncomplicated diverticulosis. Dictated by: Dictated on workstation # [id number]
== END ==
LOC: RAD 01-15 16:18
PROVIDERS: ATTEND Specialist
DX: K57.30 Diverticulosis of large intestine without perforation or abscess without bleeding (principal); C67.2 Malignant neoplasm of lateral wall of bladder; N20.2 Calculus of kidney with calculus of ureter
CPT/HCPCS: 74176